=== PATIENT | female | born 1960 | race Caucasian/White ===

== ENCOUNTER 2021-09-04 18:29 | Emergency (ER) | payer OTHER ==
[~2021-09-04] VITALS: Ht 157.5 cm; Wt 55.3 kg
[2021-09-04 18:31] VITALS: BP 131/78
[2021-09-04] MEDS ORDERED: KETOROLAC 30 MG/ML VIAL IM ONE (19:00)
[2021-09-04] MEDS ORDERED: SULF-59 PO (19:33)
[2021-09-04] MEDS ORDERED: NAPR-54 PO (19:33)
[2021-09-04] MEDS ORDERED: POLY17PD46 PO (19:33)
[2021-09-04] MEDS ORDERED: ONDA-188 SL (19:33)
[2021-09-04 19:43] VITALS: BP 131/78
== END 2021-09-04 19:43 | disposition home or self-care (01) ==
LOC: MED 18:29
DX: J06.9 Acute upper respiratory infection, unspecified (principal); K59.00 Constipation, unspecified; Z79.899 Other long term (current) drug therapy
CPT/HCPCS: 81002; 96372; 99283; J1885